=== PATIENT | female | born 1970 | race Caucasian/White ===

== ENCOUNTER 2017-12-25 19:09 | Emergency (ER) | payer BC, OTHER ==
[2017-12-25] MEDS: Sodium Chloride 0.9% 1,000 ML IV ONE (19:48)
--- NOTE | 2017-12-25 19:48 | EDM.PDOC ---
ED HPI GENERAL MEDICAL PROBLEM - General Chief Complaint: Flank Pain Stated Complaint: ABD PAINS [id number] Time Seen by Provider: 12/25/17 19:47 Source of Information: Reports: Patient History Limitations: Reports: No Limitations - History of Present Illness INITIAL COMMENTS - FREE TEXT/NARRATIVE: onset today low back pain with h/o PN. also has dysuria. 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: Neurological History: Reports: Migraines Psychiatric History: Reports: Anxiety, Depression, Panic Attack Hematologic History: Reports: Anemia - Past Surgical History Female Surgical History: Reports: Section, Hysterectomy Social & Family History - Family History Family Medical History: Noncontributory - Tobacco Use Smoking Status *Q: Never Smoker Second Hand Smoke Exposure: No - Caffeine Use Caffeine Use: Reports: Coffee Other Caffeine Use: 2cups/day - Recreational Drug Use Recreational Drug Use: No ED ROS GENERAL - Review of Systems Review Of Systems: ROS reveals no pertinent complaints other than HPI. ED EXAM,LOWER BACK PAIN/INJURY - Physical Exam Exam: See Below Exam Limited By: No Limitations General Appearance: Alert, WD/WN, Mild Distress, Other (discomfort) Ears: Hearing Grossly Normal Throat/Mouth: Normal Voice, No Airway Compromise Head: Atraumatic Neck: Non-Tender, Full Range of Motion Respiratory/Chest: No Respiratory Distress Cardiovascular: Regular Rate, Rhythm GI/Abdominal: Soft, Non-Tender Back Exam: CVA Tenderness (L), CVA Tenderness (R) Neurological: Alert, Normal Mood/Affect, Normal Gait, No Motor/Sensory Deficits , Oriented x 3 Psychiatric: Normal Affect, Normal Mood Skin Exam: Warm, Dry, Normal Color Lymphatic: No Adenopathy Course - Vital Signs Last Recorded V/S: Last Vital Signs Temp 36.6 C 12/25/17 20:36 Pulse 72 12/25/17 20:36 Resp 16 12/25/17 20:36 BP 122/68 12/25/17 20:36 Pulse Ox 100 05/30/18 20:36 - Orders/Labs/Meds Orders: Active Orders 24 hr Category Date Time Status CULTURE BLOOD [BC] Stat Lab 12/25/17 19:35 Received Levofloxacin/Dextrose 5%-Water [Levaquin in D5W 500 MG/ Med 12/25/17 20:27 Active 100 ML] 500 mg Premix Bag 1 bag IV ONETIME Medication Orders Levofloxacin/Dextrose 500 mg/ (Premix) 100 mls @ 100 mls/hr IV ONETIME ONE Stop: 12/25/17 21:26 Last Admin: 12/25/17 20:31 Dose: 100 mls/hr Labs: Laboratory Tests 12/25/17 12/25/17 12/25/17 Range/Units 19:17 19:17 19:35 WBC 15.4 H (5.0-10.0) 10^3/uL RBC 4.69 (4.2-5.4) 10^6/uL Hgb 12.4 (12.0-16.0) g/dL Hct 36.8 L (37.0-47.0) % MCV 78.5 L (80-100) fL MCH 26.4 L (27.0-34.0) pg MCHC 33.7 (33.0-35.0) g/dL Plt Count 277 (150-450) 10^3/uL Neut % (Auto) 63.6 (42.2-75.2) % Lymph % (Auto) 26.6 (20.5-50.1) % [place] % (Auto) 7.7 (2-8) % Eos % (Auto) 1.8 (1.0-3.0) % Baso % (Auto) 0.3 (0.0-1.0) % Sodium (135-145) mmol/L Potassium (3.6-5.0) mmol/L Chloride (101-111) mmol/L Carbon Dioxide (21.0-31.0) mmol/L Anion Gap BUN (7-18) mg/dL Creatinine (0.6-1.3) mg/dL Est Cr Clr Drug Dosing mL/min Estimated GFR (MDRD) BUN/Creatinine Ratio Glucose (74-105) mg/dL Lactic Acid (0.5-2.2) mmol/L Calcium (8.4-10.2) mg/dl Total Bilirubin (0.2-1.0) mg/dL AST (10-42) IU/L ALT (10-60) IU/L Alkaline Phosphatase (42-121) IU/L Total Protein (6.7-8.2) g/dl Albumin (3.2-5.5) g/dl Globulin Albumin/Globulin Ratio Urine Color Yellow (YELLOW) Urine Appearance Cloudy (CLEAR) Urine pH 7.0 (5.0-9.0) Ur Specific [place] 1.015 (1.005-1.030) Urine Protein 30 H (NEGATIVE) Urine Glucose (UA) Negative (NEGATIVE) Urine Ketones Negative (NEGATIVE) Urine Occult Blood Large H (NEGATIVE) Urine Nitrite Negative (NEGATIVE) Urine Bilirubin Negative (NEGATIVE) Urine Urobilinogen 0.2 (0.2-1.0) mg/dL Ur Leukocyte Esterase Moderate H (NEGATIVE) Urine RBC >100 H /HPF Urine WBC Semi-packed H (0-5/HPF) /HPF Ur Epithelial Cells Rare /HPF Amorphous Sediment Rare (0/HPF) /HPF Urine Bacteria Few (0-FEW/HPF) /HPF Urine Mucus Rare /LPF Urine HCG, Qual Negative 12/25/17 12/25/17 Range/Units 19:35 19:35 WBC (5.0-10.0) 10^3/uL RBC (4.2-5.4) 10^6/uL Hgb (12.0-16.0) g/dL Hct (37.0-47.0) % MCV (80-100) fL MCH (27.0-34.0) pg MCHC (33.0-35.0) g/dL Plt Count (150-450) 10^3/uL Neut % (Auto) (42.2-75.2) % Lymph % (Auto) (20.5-50.1) % [place] % (Auto) (2-8) % Eos % (Auto) (1.0-3.0) % Baso % (Auto) (0.0-1.0) % Sodium 135 (135-145) mmol/L Potassium 3.4 L (3.6-5.0) mmol/L Chloride 103 (101-111) mmol/L Carbon Dioxide 23.0 (21.0-31.0) mmol/L Anion Gap 12.4 BUN 19 H (7-18) mg/dL Creatinine 0.8 (0.6-1.3) mg/dL Est Cr Clr Drug Dosing 75.07 mL/min Estimated GFR (MDRD) > 60 BUN/Creatinine Ratio 23.75 Glucose 90 (74-105) mg/dL Lactic Acid 0.6 (0.5-2.2) mmol/L Calcium 9.2 (8.4-10.2) mg/dl Total Bilirubin 0.4 (0.2-1.0) mg/dL AST 20 (10-42) IU/L ALT 21 (10-60) IU/L Alkaline Phosphatase 44 (42-121) IU/L Total Protein 7.8 (6.7-8.2) g/dl Albumin 4.2 (3.2-5.5) g/dl Globulin 3.6 Albumin/Globulin Ratio 1.17 Urine Color (YELLOW) Urine Appearance (CLEAR) Urine pH (5.0-9.0) Ur Specific [place] (1.005-1.030) Urine Protein (NEGATIVE) Urine Glucose (UA) (NEGATIVE) Urine Ketones (NEGATIVE) Urine Occult Blood (NEGATIVE) Urine Nitrite (NEGATIVE) Urine Bilirubin (NEGATIVE) Urine Urobilinogen (0.2-1.0) mg/dL Ur Leukocyte Esterase (NEGATIVE) Urine RBC /HPF Urine WBC (0-5/HPF) /HPF Ur Epithelial Cells /HPF Amorphous Sediment (0/HPF) /HPF Urine Bacteria (0-FEW/HPF) /HPF Urine Mucus /LPF Urine HCG, Qual Meds: Medications Generic Name Dose Route Start Last Admin Trade Name Freq PRN Reason Stop Dose Admin Levofloxacin/Dextrose 500 mg/ 100 mls @ 100 mls/hr 12/25/17 20:27 12/25/17 20 :31 Premix IV 12/25/17 21:26 100 mls/hr ONETIME ONE Administration Discontinued Medications Generic Name Dose Route Start Last Admin Trade Name Freq PRN Reason Stop Dose Admin Sodium Chloride 1,000 mls @ 999 mls/hr 12/25/17 19:43 12/25/17 19:48 Normal Saline IV 12/25/17 20:43 999 mls/hr .BOLUS ONE Administration Ketorolac Tromethamine 15 mg 12/25/17 19:43 12/25/17 19:51 Toradol IVPUSH 12/25/17 19:44 15 mg ONETIME ONE Administration Ondansetron HCl 4 mg 12/25/17 19:43 12/25/17 19:49 Zofran IV 12/25/17 19:44 4 mg ONETIME ONE Administration Phenazopyridine HCl 95 mg 12/25/17 20:27 12/25/17 20:31 Urinary Pain Relief PO 12/25/17 20:28 95 mg ONETIME ONE Administration - Re-Assessments/Exams Free Text/Narrative Re-Assessment/Exam: 12/25/17 20:28 results discussed with pt. Departure - Departure Time of Disposition: 20:57 Disposition: Home, Self-Care 01 Condition: Good Clinical Impression: UTI, Urinary tract infectious disease, Hematuria due to acute cystitis - Discharge Information Instructions: Urinary Tract Infection, Adult, [id number] Forms: ED Department Discharge Additional Instructions: 1) drink lots of liquids 2) cranberry juice 3) recheck as needed rx given; macrobid 100mg bid x 20 pyridium 100mg tid x 12 - My Orders Last 24 Hours: My Active Orders 12/25/17 19:35 CULTURE BLOOD [BC] Stat 12/25/17 20:27 Levofloxacin/Dextrose 5%-Water [Levaquin in D5W 500 MG/100 ML] 500 mg Premix Bag 1 bag IV ONETIME - Assessment/Plan Last 24 Hours: My Active Orders 12/25/17 19:35 CULTURE BLOOD [BC] Stat 12/25/17 20:27 Levofloxacin/Dextrose 5%-Water [Levaquin in D5W 500 MG/100 ML] 500 mg Premix Bag 1 bag IV ONETIME
[2017-12-25] MEDS: Ondansetron 4 MG/2 ML SDV IV ONE (19:49)
[2017-12-25] MEDS: Ketorolac 30 MG/ML SDV IVPUSH ONE (19:51)
[2017-12-25 20:06] LABS: CHLORIDE,CL 103 mmol/L (101-111); SODIUM,NA 135 mmol/L (135-145)
[2017-12-25] MEDS: Phenazopyridine 95 MG Tab PO ONE (20:31)
[2017-12-25] MEDS: Levofloxacin/Dextrose 5%-Water 500 MG in Premix Bag 1 BAG IV ONE (20:31)
== END 2017-12-25 21:30 | disposition home or self-care (01) ==
LOC: DL.ED 19:09
DX: N30.01 Acute cystitis with hematuria (principal); Z88.0 Allergy status to penicillin; Z79.899 Other long term (current) drug therapy
CPT/HCPCS: 36415; 80053; 81001; 81025; 83605; 85025; 87040; 96361; 96365; 96375; 99283; A9270; J1885; J1956; J2405; J7030

== ENCOUNTER 2020-07-20 16:13 | Emergency (ER) | payer BC, OTHER ==
--- NOTE | 2020-07-20 17:07 | EDM.PDOC ---
<Anuradha Morales - Last Filed: 07/20/20 17:53> ED HPI GENERAL MEDICAL PROBLEM - General Chief Complaint: Upper Extremity Injury/Pain Stated Complaint: RIGHT SHOULDER TO WRIST IS NUMB, FELL Time Seen by Provider: 07/20/20 16:30 Source of Information: Reports: Patient, RN, RN Notes Reviewed History Limitations: Reports: No Limitations - History of Present Illness INITIAL COMMENTS - FREE TEXT/NARRATIVE: pt to ER with c/o left shoulder pain. pt states she was walking into the bar and tripped on door jam and fell into a wall. reports left shoulder pain with numbness and tingling down left arm. reports injury happening 15 minutes prior to arrival. states her last oral intake was a cheeseburger @ 1pm, a few drinks on the way to town the afternoon and a few sips of a caesar prior to coming to ER. denies PMH, reports previous c-sections. 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 ED EXAM, GENERAL - Physical Exam Exam: See Below Exam Limited By: No Limitations General Appearance: Alert, Moderate Distress Eye Exam: Bilateral Eye: EOMI, Normal Inspection Ears: Normal External Exam, Hearing Grossly Normal Nose: Normal Inspection Throat/Mouth: Normal Inspection Head: Atraumatic, Normocephalic Neck: Normal Inspection, Non-Tender, Full Range of Motion Respiratory/Chest: No Respiratory Distress, Lungs Clear, Normal Breath Sounds Cardiovascular: Normal Peripheral Pulses, Regular Rate, Rhythm, No Edema, No Murmur, No Rub Peripheral Pulses: 3+: Radial (L) GI/Abdominal: Normal Bowel Sounds, Soft, Non-Tender (Female) Exam: Deferred Rectal (Female) Exam: Deferred Back Exam: Normal Inspection, Full Range of Motion Extremities: Normal Inspection, Limited Range of Motion (left shoulder) Neurological: Alert, Oriented Psychiatric: Anxious, Tearful Skin Exam: Warm, Dry, Intact Lymphatic: No Adenopathy ED TRAUMA EXTREMITY PROCEDURES - Joint Reduction Left Shoulder Sedation: Conscious Sedation Pre-Procedure NV Status: Normal Post-Procedure NV Status: Normal Technique: Traction/Counter Traction Number of Attempts: 1 Post-Reduction Imaging: Completely Reduced Joint Reduction Complications: No Course - Radiology Interpretation Free Text/Narrative:: PROCEDURE INFORMATION: Exam: XR Left Shoulder Exam date and time: 07/20/2020 4:28 PM Age: 50 years old Clinical indication: Other: Fell into a wall TECHNIQUE: Imaging protocol: XR Left shoulder. Views: 2 or more views. COMPARISON: No relevant prior studies available. FINDINGS: Bones/joints: There is anterior dislocation of the left humeral head. There is no evidence of acute fracture. Soft tissues: No soft tissue swelling is identified. IMPRESSION: Left anterior shoulder dislocation. Thank you for allowing us to participate in the care of your patient. Dictated and Authenticated by: Ryan Alejandre MD PROCEDURE INFORMATION: Exam: XR Left Shoulder Exam date and time: 07/20/2020 5:31 PM Age: 50 years old Clinical indication: Other: Post reduction TECHNIQUE: Imaging protocol: XR Left shoulder. Views: 2 or more views. COMPARISON: CR Shoulder Comp Lt 07/20/2020 4:28 PM FINDINGS: Bones/joints: There appears to be a small Hill-Sachs deformity along the posterolateral margin of the humeral head. The glenohumeral joint is normal. The acromioclavicular joint is normal. Soft tissues: No soft tissue swelling is identified. IMPRESSION: 1. Then atomic alignment of the glenohumeral joint. 2. Small Hill-Sachs deformity. Thank you for allowing us to participate in the care of your patient. Dictated and Authenticated by: Ryan Alejandre MD Departure - Departure Disposition: Home, Self-Care 01 Clinical Impression: Hill Sachs deformity, left Dislocation of left shoulder joint Qualifiers: Encounter type: initial encounter Qualified Code(s): S43.005A - Unspecified dislocation of left shoulder joint, initial encounter - Discharge Information Instructions: How To Use a Sling, [id number], Shoulder Pain, [id number], Shoulder Dislocation, [id number] Referrals: PCP,None [Primary Care Provider] - Forms: ED Department Discharge Additional Instructions: Call [facility] for follow up appointment NEXT WEEK for further instruction for work May be seen in [place] or [place] with any orthopedic doctor [phone] Left anterior shoulder dislocation on Saturday, July 20, 2020 Hill-Sachs lesion found on post reduction xray May use Tylenol and/or Ibuprofen as directed for pain Ice the left shoulder as tolerated Use sling when up and around Sepsis Event Note (ED) - Evaluation Sepsis Screening Result: No Definite Risk <Nisha Lopez - Last Filed: 07/20/20 18:49> Course - Vital Signs Last Recorded V/S: Last Vital Signs Temp 97.3 F 07/20/20 16:29 Pulse 80 07/20/20 16:29 Resp 18 07/20/20 16:29 BP 145/76 H 07/20/20 16:29 Pulse Ox 99 07/20/20 16:29 - Re-Assessments/Exams Free Text/Narrative Re-Assessment/Exam: 07/20/20 18:15 I personally performed or re-performed the physical examination and medical decision making. I have verified all student documentation or findings, including history, physical exam and/or medical decision making. Departure - Departure Time of Disposition: 18:15 Condition: Fair - Discharge Information *PRESCRIPTION DRUG MONITORING PROGRAM REVIEWED*: No *COPY OF PRESCRIPTION DRUG MONITORING REPORT IN PATIENT KAIT: No Sepsis Event Note (ED) - Focused Exam Vital Signs: Vital Signs Temp Pulse Resp BP Pulse Ox 07/20/20 16:29 97.3 F 80 18 145/76 H 99
--- NOTE | 2020-07-20 17:47 | CR ---
PROCEDURE INFORMATION: Exam: XR Left Shoulder Exam date and time: 07/20/2020 5:31 PM Age: 50 years old Clinical indication: Other: Post reduction TECHNIQUE: Imaging protocol: XR Left shoulder. Views: 2 or more views. COMPARISON: CR Shoulder Comp Lt 07/20/2020 4:28 PM FINDINGS: Bones/joints: There appears to be a small Hill-Sachs deformity along the posterolateral margin of the humeral head. The glenohumeral joint is normal. The acromioclavicular joint is normal. Soft tissues: No soft tissue swelling is identified. IMPRESSION: 1. Then atomic alignment of the glenohumeral joint. 2. Small Hill-Sachs deformity.
== END 2020-07-20 18:37 | disposition home or self-care (01) ==
LOC: DL.ED 16:13
DX: S43.015A Anterior dislocation of left humerus, initial encounter (principal); M21.922 Unspecified acquired deformity of left upper arm; F41.9 Anxiety disorder, unspecified; F32.9 Major depressive disorder, single episode, unspecified; Z79.899 Other long term (current) drug therapy; Z88.0 Allergy status to penicillin; W01.10XA Fall on same level from slipping, tripping and stumbling with subsequent striking against unspecified object, initial encounter; Y93.01 Activity, walking, marching and hiking
CPT/HCPCS: 23650; 73030-LT; 99152; 99283-25

== ENCOUNTER 2021-03-07 05:21 | Emergency (ER) | payer BC ==
--- NOTE | 2021-03-07 05:46 | EDM.PDOC ---
ED HPI GENERAL MEDICAL PROBLEM - General Chief Complaint: Genitourinary Problem Stated Complaint: THINKS UTI Time Seen by Provider: 03/07/21 05:38 Source of Information: Reports: Patient, RN, RN Notes Reviewed History Limitations: Reports: No Limitations - History of Present Illness INITIAL COMMENTS - FREE TEXT/NARRATIVE: Charis is a 50 y/o female who presents to the ED via personal vehicle with complaints of dysuria, hematuria, frequency, and inability to fully void. The patient reports her symptoms began last night at approximately 1800 and have progressively worsened in severity over that time. She states she works over nights and could not stand the pain and inability to void any longer. She denies fever, shaking chills, palpitations, nausea, vomiting, or diarrhea. She has taken no medications for her symptoms. The patient reports she has experienced similar pain in the past with a UTI. 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 ED EXAM, RENAL/ - Physical Exam Exam: See Below Exam Limited By: No Limitations General Appearance: Alert, No Apparent Distress Eye Exam: Bilateral Eye: EOMI, Normal Inspection, PERRL (3mm) Ears: Normal External Exam, Hearing Grossly Normal Nose: Normal Inspection, Normal Mucosa, No Blood Throat/Mouth: Normal Inspection, Normal Oropharynx, Normal Voice, No Airway Com promise Head: Atraumatic, Normocephalic Neck: Normal Inspection, Supple, Non-Tender, Full Range of Motion Respiratory/Chest: No Respiratory Distress, Lungs Clear, Normal Breath Sounds, No Accessory Muscle Use, Chest Non-Tender Cardiovascular: Normal Peripheral Pulses, Regular Rate, Rhythm, No Edema, No Gallop, No JVD, No Murmur, No Rub GI/Abdominal: Normal Bowel Sounds, Soft, No Distention, No Abnormal Bruit, No Mass, Pelvis Stable, Tender (To suprapubic region) (Female) Exam: Deferred Rectal (Female) Exam: Deferred Back Exam: Normal Inspection, Full Range of Motion. No: CVA Tenderness (L), CVA Tenderness (R) Extremities: Normal Inspection, Normal Range of Motion, Normal Capillary Refill Neurological: Alert, Oriented, CN II-XII Intact, Normal Cognition, Normal Gait, No Motor/Sensory Deficits Psychiatric: Normal Affect, Normal Mood Skin Exam: Warm, Dry, Intact, Normal Color, No Rash. No: Cyanosis, Jaundice, Mottled, Pallor Course - Vital Signs Last Recorded V/S: Last Vital Signs Temp 96.7 F L 03/07/21 05:25 Pulse 92 03/07/21 05:25 Resp 18 03/07/21 05:25 BP 143/89 H 03/07/21 05:25 Pulse Ox 100 03/07/21 05:25 - Orders/Labs/Meds Orders: Active Orders 24 hr Category Date Time Status CULTURE URINE [RM] Stat Lab 03/07/21 05:25 Received Labs: Laboratory Tests 03/07/21 Range/Units 05:25 Urine Color Red (YELLOW) Urine Appearance Turbid (CLEAR) Urine pH 6.5 (5.0-9.0) Ur Specific [place] >= 1.030 (1.005-1.030) Urine Protein >=300 H (NEGATIVE) Urine Glucose (UA) Negative (NEGATIVE) Urine Ketones Trace H (NEGATIVE) Urine Occult Blood Large H (NEGATIVE) Urine Nitrite Negative (NEGATIVE) Urine Bilirubin Small H (NEGATIVE) Urine Urobilinogen 0.2 (0.2-1.0) mg/dL Ur Leukocyte Esterase Trace H (NEGATIVE) Urine RBC Packed H (0-5) /HPF Urine WBC 10-20 H (0-5/HPF) /HPF Ur Epithelial Cells Occasional (NOT SEEN) /HPF Amorphous Sediment Few (NOT SEEN) /HPF Urine Bacteria Occasional (0-FEW/HPF) /HPF Urine Mucus Not seen (NOT SEEN) /LPF Urinalysis Comment Meds: Medications Discontinued Medications Generic Name Dose Route Start Last Admin Trade Name Devaughn PRN Reason Stop Dose Admin Nitrofurantoin Macrocrystals 100 mg 03/07/21 05:53 03/07/21 06:00 Nitrofurantoin Monohydrate/Macrocrystalline 100 Mg Cap PO 03/07/21 05:54 100 mg ONETIME ONE Administration Phenazopyridine HCl 190 mg 03/07/21 05:53 03/07/21 06:00 Phenazopyridine 95 Mg Tab PO 03/07/21 05:54 190 mg ONETIME ONE Administration - Re-Assessments/Exams Free Text/Narrative Re-Assessment/Exam: 03/07/21 UA with reflex culture sent. Findings of examination and lab work reviewed with patient. Will treat UTI with Macrobid and Pyridium. Discussed supportive cares for UTI. Red flag signs and symptoms which would warrant reevaluation reviewed. Patient verbalized understanding and agreement with the plan of care. Departure - Departure Time of Disposition: 06:06 Disposition: Home, Self-Care 01 Condition: Good Clinical Impression: UTI, Urinary tract infectious disease - Discharge Information *PRESCRIPTION DRUG MONITORING PROGRAM REVIEWED*: Not Applicable *COPY OF PRESCRIPTION DRUG MONITORING REPORT IN PATIENT KAIT: Not Applicable Instructions: Urinary Tract Infection, Adult Forms: ED Department Discharge Additional Instructions: Rx: Macrobid Rx: phenazopyridine 1.) Take all of your antibiotic until gone, even as symptoms improve. 2.) Drink large volumes of water to keep hydrated and to flush out kidneys and bladder. 3.) Follow up with your primary care provider, or return to the emergency department with any persistent or worsening symptoms despite medications. Sepsis Event Note (ED) - Focused Exam Vital Signs: Vital Signs Temp Pulse Resp BP Pulse Ox 03/07/21 05:25 96.7 F L 92 18 143/89 H 100 - My Orders Last 24 Hours: My Active Orders 03/07/21 05:25 CULTURE URINE [RM] Stat - Assessment/Plan Last 24 Hours: My Active Orders 03/07/21 05:25 CULTURE URINE [RM] Stat
[2021-03-07] MEDS ORDERED: Phenazopyridine 95 MG Tab PO ONE (05:53)
[2021-03-07] MEDS ORDERED: Nitrofurantoin Monohydrate/Macrocrystalline 100 MG Cap PO ONE (05:53)
== END 2021-03-07 06:05 | disposition home or self-care (01) ==
LOC: DL.ED 05:21
DX: N39.0 Urinary tract infection, site not specified (principal); Z88.0 Allergy status to penicillin
CPT/HCPCS: 81001; 87086; 87088; 87186; 99283; A9270

== ENCOUNTER 2023-02-15 05:58 | Day surgery (SDC) | payer BC ==
[2023-02-15] MEDS ORDERED: fentaNYL 100 MCG/2 ML SDV IV ONE ×3 (05:59→07:08)
[2023-02-15] MEDS ORDERED: Midazolam 1 MG/ML 2 ML SDV IV ONE ×3 (05:59→07:09)
[2023-02-15] MEDS ORDERED: Dextrose 5%-0.45% NaCl 1,000 ML IV SCH (06:00)
[2023-02-15] MEDS ORDERED: fentaNYL 100 MCG/2 ML SDV ONE (06:06)
[2023-02-15] MEDS ORDERED: Midazolam 1 MG/ML 2 ML SDV ONE (06:06)
[2023-02-22] MEDS ORDERED: Dextrose 5%-0.45% NaCl 1,000 ML IV SCH (06:00)
== END 2023-02-15 09:15 | disposition home or self-care (01) ==
LOC: DL.ENDO 05:58
PROVIDERS: ATTEND Internal Medicine Gastroenterology
DX: D50.9 Iron deficiency anemia, unspecified (principal); K29.50 Unspecified chronic gastritis without bleeding; B96.81 Helicobacter pylori [H. pylori] as the cause of diseases classified elsewhere; E66.09 Other obesity due to excess calories; F32.A Depression, unspecified; G47.33 Obstructive sleep apnea (adult) (pediatric); Z88.0 Allergy status to penicillin; Z68.31 Body mass index [BMI] 31.0-31.9, adult; Z90.710 Acquired absence of both cervix and uterus
CPT/HCPCS: 87077; J2250; J3010; J7042

== ENCOUNTER 2023-02-22 06:02 | Day surgery (SDC) | payer BC ==
[2023-02-22] MEDS ORDERED: Midazolam 1 MG/ML 2 ML SDV IV ONE (06:03)
[2023-02-22] MEDS ORDERED: fentaNYL 100 MCG/2 ML SDV IV ONE (06:03)
[2023-02-22] MEDS: Dextrose 5%-0.45% NaCl 1,000 ML IV SCH (06:24)
[2023-02-22] MEDS ORDERED: Midazolam 1 MG/ML 2 ML SDV ONE (06:53)
[2023-02-22] MEDS ORDERED: fentaNYL 100 MCG/2 ML SDV ONE (06:54)
[2023-02-22] MEDS: fentaNYL 100 MCG/2 ML SDV IV ONE ×6 (07:00→07:22)
[2023-02-22] MEDS: Midazolam 1 MG/ML 2 ML SDV IV ONE ×6 (07:01→07:12)
== END 2023-02-22 09:20 | disposition home or self-care (01) ==
LOC: DL.ENDO 06:02
PROVIDERS: ATTEND Internal Medicine Gastroenterology
DX: D50.9 Iron deficiency anemia, unspecified (principal); D12.4 Benign neoplasm of descending colon; K57.30 Diverticulosis of large intestine without perforation or abscess without bleeding; F32.A Depression, unspecified; G47.33 Obstructive sleep apnea (adult) (pediatric); E66.09 Other obesity due to excess calories; Z90.710 Acquired absence of both cervix and uterus; Z98.51 Tubal ligation status; Z88.0 Allergy status to penicillin; Z68.31 Body mass index [BMI] 31.0-31.9, adult
CPT/HCPCS: 45385; J2250; J3010; J7042